=== PATIENT | male | born 1975 | race Caucasian/White ===

== ENCOUNTER 2016-09-18 13:07 | Emergency (ER) | payer SELFPAY ==
--- NOTE | ~2016-09-18 | EKG ---
PATIENT: CARROLL YODER UNIT #: [id number] Ventricular Rate: 62 BPM Atrial Rate: 62 BPM P-R Interval: 148 ms QRS Duration: 88 ms Q-T Interval: 380 ms QTC Calculation(Bezet): 385 ms P [place]: 35 degrees Calculated R [place]: 61 degrees Calculated T [place]: 61 degrees Diagnosis Line: Normal sinus rhythm Diagnosis Line: Normal ECG Diagnosis Line: When compared with ECG of 08-MAR-2011 19:20, Diagnosis Line: Vent. rate has decreased BY 38 BPM Diagnosis Line: QT has shortened Diagnosis Line: Confirmed by THANH WEST MD ([id number]) on Diagnosis Line: 09/20/2016 11:03:34 AM INTERPRETING MD: JENNA JONES
--- NOTE | ~2016-09-18 | CR72 ---
[facility]. [facility] A Service of [facility] [place] & [facility] RADIOLOGY TEXT RESULTS PATIENT: CARROLL YODER LOCATION: SED : 71 UNIT #: [id number] AGE: [address]: Derek Feng MD SEX: M ORDER DR: [id number] [place] [id number] MR#: [id number] Acc #: [id number] NAME: CARROLL YODER. : 1975 SEX: M STUDY DATE/TIME: 09/18/2016 13:55 UNIT: SED ROOM: STUDY DESCRIPTION: CR Chest Single View Portable Attending Physician: Derek Feng M.D. Ordering Physician: Derek Feng M.D. Primary Care Physician: No Primary Care Physician MEDICAL IMAGING REPORT This report is preliminary unless electronic signature is present. EXAM Portable chest, 09/18/2016. HISTORY Dyspnea, shortness of breath for 1 hour today. FINDINGS A single AP portable view of the chest shows both lungs to be clear. The heart is normal in size. The mediastinal contour is normal. No significant bone abnormalities are seen. IMPRESSION Normal portable chest. Dictated by... Jeancarlos Zee M.D. THIS IS AN ELECTRONICALLY VERIFIED REPORT Jeancarlos Zee M.D. at 09/19/2016 2:13 PM THOMAS/clement TD: 09/18/2016 23:14 JOB #: [id number] MEDICAL IMAGING REPORT Page 1 of 1
[~2016-09-18 13:07] MED LIST: ALBUTEROL17 G1 IH; DICLOXAXILLIN250 MG PO; DUONEB 2.5-0.5 M3 ML NEB; FEVERALL650 MG/SUP RC; MEDROL4 MG/DOSE- PO; NO MEDICATIONS; PREDNISONE PO; SKELAXIN PO; ULTRAM PO; VIBRAMYCIN100 M1 PO; VICODIN 5/500 T1 TAB PO; VICODIN PO; VOLTAREN75 MG PO; ZOFRAN PO
== END 2016-09-18 14:24 | disposition home or self-care (01) ==
LOC: SED 13:07
DX: F41.9 Anxiety disorder, unspecified (principal); R06.00 Dyspnea, unspecified; Z88.5 Allergy status to narcotic agent
CPT/HCPCS: 71010; 93005; 99285